=== PATIENT | male | born 2000 | race Caucasian/White ===

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

== ENCOUNTER 2022-04-12 19:10 | Emergency (ER) | payer OTHER, SELFPAY ==
[2022-04-12 19:16] VITALS: BP 154/94; PULSE 90; RESP 18; TEMP 36.3; O2SAT 96; BMI 27.2
--- NOTE | 2022-04-12 19:25 | W.ED.WOUNDLC ---
HPI - Wound/Laceration General: Chief Complaint: Wound/Laceration Stated Complaint: Thumb lac Time Seen by Provider: 04/12/22 19:21 History of Present Illness: 21-year-old male comes in today for injury to the right hand at the base of the right thumb. No tendon injury is noted. No foreign body is noted. Patient immunizations are up-to-date. Patient appears nontoxic. Patient reports no chronic medical problems or concerns. Associated symptoms: Denies fever(s) Review of Systems Const: Denies: fever(s) Musc: Reports: extremity pain Skin/Breast: Reports: new lesions PFS ED PFSH: Medical History (Updated 04/12/22 @ 19:48 by JUAN RAMON Martinez) No active medical problems Surgical History (Updated 06/26/19 @ 07:57 by Martinez Carmona MD) No pertinent past surgical history Social History Smoking and tobacco status: never smoked Alcohol intake: never Physical Exam Const: COMMON NORMALS: alert HENMT: COMMON NORMALS: normocephalic HEAD & SCALP: normocephalic Neck/C-Spine: COMMON NORMALS: full ROM Resp: COMMON NORMALS: normal respiratory effort Cardio: COMMON NORMALS: regular rate RATE: regular rate Back/Pelvis: COMMON NORMALS: thoracic and lumbar spine normal to inspection Extremity: RIGHT UPPER EXTREMITY: Yes hand & digits (1-1/2 cm laceration, linear, base of thumb, normal range of motion) Right hand and digits: Yes inspection, Yes palpation and Yes ROM exam Neuro: SENSORIUM/ORIENTATION: Yes alert Skin: TRAUMA: laceration (Right hand) linear Procedures Laceration Laceration 1: Site: upper extremity Side (If applicable): right Size (cm): 1.5 Description: linear Depth: simple, single layer Local Anesthetic: lidocaine 1% Amount of anesthesia used (mL): 2 Pre-repair: wound explored and irrigated extensively Skin layer closed with: nylon Size (cm): 4-0 Number of sutures: 2 Technique: horizontal mattress Course Vital Signs: Vital signs: Vital Signs Temperature 97.3 F L 04/12/22 19:16 Pulse Rate 90 04/12/22 19:16 Respiratory Rate 18 04/12/22 19:16 Blood Pressure 154/94 04/12/22 19:16 Pulse Oximetry 96 04/12/22 19:16 Oxygen Delivery Me thod 04/12/22 19:16 MDM - Wound/Laceration Medical Decision Making 21-year-old male comes in today for complaints of injury to the right thumb. Patient was opening up a can at home when he cut his hand on the sharp edge of the can. Patient has 1-1/2 cm laceration to the base of the right thumb. Normal range of motion of the hand is noted. No tendon injury is noted. Differential diagnosis includes foreign body, fracture, laceration, need for prophylaxis tetanus. Patient states that his tetanus is up-to-date. No foreign body was noted and no fracture was noted. Wound was closed with sutures patient tolerated well. Post procedure care and instructions were given to patient with recommendations for follow-up. Patient reported understanding. Discharge Plan Discharge Patient Disposition: Home Clinical Impression: Hand laceration Qualifiers: Encounter type: initial encounter Foreign body presence: without foreign body Laterality: right Qualified Code(s): S61.411A - Laceration without foreign body of right hand, initial encounter Condition: Stable Prescriptions: No Action hydrocodone-acetaminophen 5-325 mg Tablet 1 tab PO Q6H PRN (Reason: Moderate Pain) Qty: 28 0RF scopolamine base 1 mg over 3 days patch 3 day 1 patch TRANSDERMA Q3D PRN (Reason: nausea and vomiting) Qty: 1 3RF Discharge Orders: Discharge ED (Routine); Ordered 04/12/22 Ordered By: Mahad De Paz Discharge Diet: Usual diet Patient Instructions: Care For Your Stitches (ED) Activity Restrictions/Additional Instructions: Keep wound clean and dry. It is very important to keep the wound as dry as possible for the next 48 hours. After that you can wash the wound with mild soap and water and thoroughly dry. Keep the wound covered if you are going to get it dirty. Avoid submersion underwater for long periods of time. Sutures can come out in 7 days. Follow-up with primary care or return to the ED for new concerns Coding Level of Care Code ED Breeder [facility] Service Technician for Fernanda Vuong
[2022-04-12 19:59] VITALS: PULSE 87; RESP 16; O2SAT 99
== END 2022-04-12 20:00 | disposition home or self-care (01) ==
PROVIDERS: Emergency Provider Nurse Practitioner Family
DX: S61.011A Laceration without foreign body of right thumb without damage to nail, initial encounter (principal); W26.8XXA Contact with other sharp object(s), not elsewhere classified, initial encounter
CPT/HCPCS: 12001; 99283